=== PATIENT | female | born 1990 | race African-American/Black ===

== ENCOUNTER 2018-03-21 00:04 | Emergency (ER) | payer OTHER ==
[~2018-03-21] VITALS: Ht 149.9 cm; Wt 54.4 kg
[2018-03-21 00:18] VITALS: BP 120/76
--- NOTE | 2018-03-21 00:36 | Emergency Room Report ---
History of Present Illness General Chief Complaint: Constipation Source: Patient Present Illness HPI This 27-year-old female with no past medical history. She presents with chief complaint of constipation. Onset for about a week now. Last bowel movement was a week ago. Has urge to go but painful. Has not tried anything for it. No fever chills but no nausea no vomiting since she is taking [id number] multivitamins. No narcotics. No recent surgery. Allergies: Coded Allergies: No Known Allergies (Unverified , 03/21/18) Patient History Past Medical History: see triage record, old chart reviewed Past Surgical History: none Pertinent Family History: none Social History: Denies: smoking Last Menstrual Period: 02/23/2018 Now: No Immunizations: other Reviewed Nursing Documentation: PMH: Agreed; PSxH: Agreed Nursing Documentation-PMH Past Medical History: No Stated History Review of Systems Eye: Denies: eye pain, blurred vision ENT: Denies: ear pain, nose congestion, throat swelling Respiratory: Denies: cough, shortness of breath Cardiovascular: Denies: chest pain, palpitations Gastrointestinal: Reports: constipation; Denies: abdominal pain, diarrhea, nausea, vomiting Musculoskeletal: Denies: back pain, joint pain Skin: Denies: rash Neurological: Denies: headache, numbness Endocrine: Denies: increased thirst, increased urine Hematologic/Lymphatic: Denies: easy bruising All Other Systems: negative except mentioned in HPI Physical Exam Vital Signs Date Time Temp Pulse Resp B/P (MAP) Pulse Ox O2 Delivery O2 Flow Rate FiO2 03/21/18 00:09 98.7 80 18 120/76 99 Room Air 98.8 vitals normal Sp02 EP Interpretation: reviewed, normal General Appearance: well appearing, no apparent distress, alert Head: normocephalic, atraumatic Eyes: bilateral eye PERRL, bilateral eye EOMI ENT: hearing grossly normal, normal pharynx Neck: full range of motion, supple, no meningismus Respiratory: chest non-tender, lungs clear, normal breath sounds Cardiovascular #1: regular rate, rhythm, no murmur Gastrointestinal: normal bowel sounds, non tender, no mass, no organomegaly, no bruit, non-distended Rectal: normal rectal tone, other - large amt of stool in vault. Musculoskeletal: back normal, gait/station normal, normal range of motion Psychiatric: mood/affect normal Skin: warm/dry Medical Decision Making Diagnostic Impression: Primary Impression: Constipation Qualified Codes: K59.00 - Constipation, unspecified ER Course Patient with constipation. Large bowel movement after disimpaction and enema. No evidence of obstruction. No evidence of acute abdomen. We'll discharge home. Last Vital Signs Date Time Temp Pulse Resp B/P (MAP) Pulse Ox O2 Delivery O2 Flow Rate FiO2 03/21/18 00:18 98.8 80 18 120/76 99 Room Air 98.8 Status: improved Disposition: HOME, SELF-CARE Condition: Stable Scripts Lactulose (LACTULOSE*) 20 Gm/30 Ml Solution 30 ML ORAL DAILY, #240 ML 0 Refills Prov: RAYMUNDO ROMAN M.D. 03/21/18 Patient Instructions: Constipation, Adult Additional Instructions: May use Fleet enemas. It is [id number]. Follow-up with your doctor in 7 days if not better. Return if worse. RAYMUNDO ROMAN M.D. Mar 21, 2018 00:36
[2018-03-21] MEDS ORDERED: Fleet's Enema 133ml RECTAL ONE (00:45)
[2018-03-21] MEDS ORDERED: LACTULOSE20 GM/301 ORAL (00:54)
[2018-03-21 01:12] VITALS: BP 0/0
== END 2018-03-21 01:10 | disposition home or self-care (01) ==
LOC: EMR 00:36
DX: K59.00 Constipation, unspecified (principal)
CPT/HCPCS: 99283